=== PATIENT | male | born 1965 ===

== ENCOUNTER → 2023-02-16 12:44 | Outpatient (CLI) | payer OTHER, SELFPAY ==
--- NOTE | ~2023-02-16 | US_ITS ---
US renal BI 02/16/2023 13:08 Procedure: Realtime transabdominal ultrasound of the kidneys and bladder. Indication: Exophytic right renal lesion seen on prior outside examination Comparison: No prior studies for comparison. Findings: Lung the lateral margin of the right kidney there is a 2.5 x 2.2 x 2.3 cm cyst. No solid re nal mass. Incidental note is made of fatty infiltration of the liver. There is a small 6 mm echogenic focus in the left kidney, suspicious for nonobstructing stone. No hydronephrosis. No left renal mass es. Bladder is unremarkable. Bilateral ureteral jets are present. The right kidney measures 13.1 cm a nd left kidney measures 13.4 cm. Bladder within normal limits. Impression: 1: Right renal cyst measuring 2.5 cm located laterally, likely corresponding to the outside CT findin g. Consider direct correlation. 2: Echogenic focus in the left kidney measuring 6 mm, suspicious for nonobstructing left renal stone. Reviewed, dictated and finalized at location L. Impression: 1: Right renal cyst measuring 2.5 cm located laterally, likely corresponding to the outside CT finding. Consider direct correlation. 2: Echogenic focus in the left kidney measuring 6 mm, suspicious for nonobstruc ting left renal stone.
== END ==
PROVIDERS: PCP Family Medicine; Visit Provider Nurse Practitioner Family
DX: N28.1 Cyst of kidney, acquired (principal)
CPT/HCPCS: 76775